=== PATIENT | female | born 1960 | race Caucasian/White ===

== ENCOUNTER → 2021-08-23 17:33 | Outpatient (CLI) | payer OTHER, SELFPAY ==
--- NOTE | ~2021-08-23 | MM_ITS ---
EXAMINATION: MM screening lewis BI w [facility] HISTORY: Screening mammogram TECHNIQUE: Craniocaudal and mediolateral oblique 3-D tomosynthesis images were obtained and synthetic 2-D images were generated. CAD analysis was submitted and interpreted. COMPARISON: 02/17/2019, 02/14/2018 bilateral digital screening mammogram examinations 02/12/2017 diagnostic right mammogram and limited right breast ultrasound 01/27/2017 bilateral digital screening mammogram BREAST PARENCHYMAL COMPOSITION: There are scattered areas of fibroglandular density. FINDINGS: There is no evidence of suspicious mass, calcification, or architectural distortion to sugg est malignancy in either breast. There has been no suspicious interval change. IMPRESSION: 1. No mammographic evidence of malignancy. 2. Recommend routine screening mammography in one year. BI-RADS Category 1: Negative Reviewed, dictated and finalized at location A.
== END ==
PROVIDERS: Visit Provider Nurse Practitioner
DX: Z12.31 Encounter for screening mammogram for malignant neoplasm of breast (principal)
CPT/HCPCS: 77063; 77067

== ENCOUNTER → 2022-01-10 15:50 | Outpatient (CLI) | payer OTHER, SELFPAY ==
--- NOTE | ~2022-01-10 | US_ITS ---
EXAMINATION: US transvaginal DATE: 01/10/2022 16:16 INDICATION: Missing intrauterine device strings. TECHNIQUE: Multiple transvaginal sonographic images of the pelvis were obtained. COMPARISON: None. FINDINGS: The uterus measures 7.2 x 3.3 x 3.7 cm. There is no free fluid in the pelvis. The endometrial complex measures 4 mm in thickness. There is an intrauterine device in expected position. There is a 10 mm n abothian cyst in the cervix. The ovaries are not visualized. IMPRESSION: 1. Intrauterine device in expected position. Reviewed, dictated and finalized at location A. INE CUTTER
== END ==
PROVIDERS: PCP Nurse Practitioner; Visit Provider Nurse Practitioner
DX: Z30.431 Encounter for routine checking of intrauterine contraceptive device (principal); N88.8 Other specified noninflammatory disorders of cervix uteri
CPT/HCPCS: 76830

== ENCOUNTER → 2022-11-29 15:37 | Outpatient (CLI) | payer OTHER, SELFPAY ==
--- NOTE | ~2022-11-29 | MM_ITS ---
EXAMINATION: MM screening lewis BI w [facility] HISTORY: Screening mammogram TECHNIQUE: Craniocaudal and mediolateral oblique 3-D tomosynthesis images were obtained and synthetic 2-D images were generated. CAD analysis was submitted and interpreted. COMPARISON: 08/23/2021, 02/17/2019, 02/14/2018 BREAST PARENCHYMAL COMPOSITION: There are scattered areas of fibroglandular density. FINDINGS: RIGHT BREAST: No suspicious mass, calcification, or architectural distortion are identified to sugges t malignancy. There has been no suspicious interval change. LEFT BREAST: An asymmetry is present in the middle third of the slightly inner breast 6 cm from the n ipple on the craniocaudal view. IMPRESSION: 1. Left breast asymmetry on the craniocaudal view. 2. Additional mammographic views and possible breast ultrasound are recommended. BI-RADS Category 0: Incomplete: Needs additional imaging evaluation. Reviewed, dictated and finalized at location A. HEATER IMPRESSION: 1. Left breast asymmetry on the craniocaudal view. 2. Additional mammographic views and possible breast ultrasound are recommended . BI-RADS Category 0: Incomplete: Needs additional imaging evaluation.
== END ==
PROVIDERS: PCP Student in an Organized Health Care Education/Training Program; Visit Provider Nurse Practitioner
DX: Z12.31 Encounter for screening mammogram for malignant neoplasm of breast (principal); R92.8 Other abnormal and inconclusive findings on diagnostic imaging of breast
CPT/HCPCS: 77063; 77067

== ENCOUNTER → 2022-12-19 07:48 | Outpatient (CLI) | payer OTHER, SELFPAY ==
--- NOTE | ~2022-12-19 | MMUS_ITS ---
EXAMINATION: MM diagnostic lewis LT w [place], US breast LT complete HISTORY: Follow-up left breast asymmetry TECHNIQUE: Additional 3-D tomosynthesis images of the left breast were performed and synthetic 2-D im ages were generated. CAD analysis was submitted and interpreted. High resolution complete left breast ultrasound was performed. COMPARISON: Comparison to multiple prior studies sequentially, with oldest reviewed study dated 01/27. BREAST PARENCHYMAL COMPOSITION: Breast composed of scattered areas of fibroglandular density FINDINGS: MAMMOGRAPHIC FINDINGS: Left breast asymmetry is less apparent with spot compression and mediolateral views. No discrete mass , architectural distortion or suspicious calcifications. ULTRASOUND: Complete bilateral US of all 4 quadrants of left breast and retroareolar region was reviewed. At 11:0 0, 5 cm from the nipple, there is a 6 mm cyst. No suspicious masses to suggest malignancy. IMPRESSION: 1. No evidence for malignancy in the left breast. Benign finding. 2. Routine yearly screening mammogram and regular clinical breast examination are recommended. BI-RADS Category 2: Benign finding(s). Reviewed, dictated and finalized at location A. ER YACHT IMPRESSION: 1. No evidence for malignancy in the left breast. Benign finding. 2. Routine yearly screening mammogram and regular clinical breast examination a re recommended. BI-RADS Category 2: Benign finding(s).
== END ==
PROVIDERS: PCP Student in an Organized Health Care Education/Training Program; Visit Provider Obstetrics & Gynecology Gynecology
DX: R92.8 Other abnormal and inconclusive findings on diagnostic imaging of breast (principal)
CPT/HCPCS: 76641; 77061; 77065; G0279

== ENCOUNTER 2024-06-09 07:11 | Outpatient (CLI) | payer OTHER, SELFPAY ==
--- NOTE | ~2024-06-09 | MM_ITS ---
EXAMINATION: MM screening lewis BI w [facility] HISTORY: Screening TECHNIQUE: Craniocaudal and mediolateral oblique 3-D tomosynthesis images were obtained and synthetic 2-D images were generated. CAD analysis was submitted and interpreted. COMPARISON: Comparison to multiple prior studies sequentially, with oldest reviewed study dated 02/14. BREAST PARENCHYMAL COMPOSITION: Not dense: There are scattered areas of fibroglandular density. FINDINGS: There is no evidence of suspicious mass, calcification, or architectural distortion to sugg est malignancy in either breast. There has been no suspicious interval change. IMPRESSION: 1. No mammographic evidence of malignancy. 2. Recommend routine screening mammography in one year. BI-RADS Category 1: Negative Reviewed, dictated and finalized at location B.
== END 2024-06-09 07:12 ==
PROVIDERS: PCP Student in an Organized Health Care Education/Training Program; Visit Provider Obstetrics & Gynecology Gynecology
DX: Z12.31 Encounter for screening mammogram for malignant neoplasm of breast (principal)
CPT/HCPCS: 77063; 77067

== ENCOUNTER 2025-02-12 09:17 | Outpatient (CLI) | payer OTHER, SELFPAY ==
--- NOTE | ~2025-02-12 | MMUS_ITS ---
EXAMINATION: MM diagnostic lewis RT w [place], US breast RT limited HISTORY: Palpable right breast lump TECHNIQUE: Additional 3-D tomosynthesis images of the right breast were performed and synthetic 2-D i mages were generated. CAD analysis was submitted and interpreted. High resolution Limited right breas t ultrasound was performed. COMPARISON: Comparison to multiple prior studies sequentially, with oldest reviewed study dated 02/14. BREAST PARENCHYMAL COMPOSITION: Not dense: There are scattered areas of fibroglandular density. FINDINGS: MAMMOGRAPHIC FINDINGS: The right breast is stable. No new masses, calcifications or architectural distortion to suggest felipe gnancy. ULTRASOUND: Limited right breast ultrasound: Normal heterogeneous echotexture without focal solid or cystic mass. IMPRESSION: 1. No evidence for malignancy in the right breast. 2. Routine yearly screening mammogram and regular clinical breast examination are recommended. BI-RADS Category 1: Negative Reviewed, dictated and finalized at location A. IMPRESSION: 1. No evidence for malignancy in the right breast. 2. Routine yearly screening mammogram and regular clinical breast examination a re recommended. BI-RADS Category 1: Negative
== END 2025-02-12 09:18 | disposition home or self-care (01) ==
LOC: MICIMG 09:17
PROVIDERS: PCP Student in an Organized Health Care Education/Training Program; Visit Provider Nurse Practitioner
DX: N63.10 Unspecified lump in the right breast, unspecified quadrant (principal)
CPT/HCPCS: 76642; 77061; 77065; G0279